=== PATIENT | male | born 1955 | race Two or more races ===

== ENCOUNTER 2016-10-12 07:29 | Day surgery (SDC) | payer OTHER, BC ==
[~2016-10-12 07:29] MED LIST: DIPHENHYDRAMINE HCL 50 MG/ML VIAL ONE; EPINEPHRINE INJ 1 MG/10 ML DISP.SYRIN ONE; FENTANYL CITRATE INJ/PF 100 MCG/2 ML AMPUL ONE; FLUMAZENIL INJ 0.5 MG/5 ML VIAL IV ONE; GLUCAGON,HUMAN RECOMB 1 MG INJ ONE; MIDAZOLAM 2 MG/2 ML INJ ONE; NALOXONE HCL INJ/PF 0.4 MG/1 ML SDV ONE; ONDANSETRON HCL INJ/PF 4 MG/2 ML SDV ONE; PROMETHAZINE HCL INJ 25 MG/1 ML VIAL ONE
[2016-10-12] MEDS: MIDAZOLAM 2 MG/2 ML INJ ONE ×2 (08:07→08:11)
--- NOTE | 2016-10-12 09:03 | Operative Report ---
Operative Report DATE OF SURGERY: 10/12/16 Operative Report: The risks, benefits and alternatives of the procedure including risks of bleeding, perforation requiring surgery are explained to the patient in detail and informed consent is obtained. The patient was taken back to the endoscopy suite. He is placed in the left lateral decubital position. Timeout is called. A rectal examination was done which did not reveal any masses tears or fissures. Conscious sedation medications are provided. An Olympus videoscope was inserted into the patient's rectum. The scope was then carefully advanced all the way to the cecum. The cecum was identified by the usual anatomical landmarks including the ileocecal valve as well as the appendiceal office. Prep is good. Photo documentations obtained. The scope was then sequentially pulled back via the various segments of the colon including the ascending colon , hepatic flexure, transverse colon, splenic flexure, descending colon and finally into the rectosigmoid portions of the colon. Retroflexion maneuver is performed. PREOPERATIVE DIAGNOSIS: Colorectal cancer screening POSTOPERATIVE DIAGNOSIS: Colon polyp at the hepatic flexure that is removed via snare polypectomy. Internal hemorrhoids. Colonoscopy completed to the cecum. OPERATION: Colonoscopy with snare polypectomy SURGEON: SONALI IBARRA ANESTHESIA: Moderate Sedation - 3 mg of Versed, 75 g of fentanyl. Conscious sedation monitoring time 17 minutes. TISSUE REMOVED OR ALTERED: Retrieved. COMPLICATIONS: None. ESTIMATED BLOOD LOSS: none. INTRAOPERATIVE FINDINGS: No masses, AVMs, diverticulosis noted. As described above. PROCEDURE: Patient tolerated the procedure well. No immediate postprocedure complications are noted. Patient is discharged in good condition. Discharge date 10/12/2016. Discharge diet: Regular. Discharge activity: Regular. Surveillance colonoscopy in 3-5 years depending on the pathology of the polyp. Patient does have a 2-3 week follow-up to discuss findings. Patient is instructed to call the office or proceed to the emergency room if there are any further problems or questions. We'll await on biopsies.
[2016-10-12 09:25] VITALS: BP 137/61
== END 2016-10-12 09:25 | disposition home or self-care (01) ==
LOC: END 07:29
PROVIDERS: ATTEND Internal Medicine Gastroenterology
PROC: 0DBE8ZX Excision of Large Intestine, Via Natural or Artificial Opening Endoscopic, Diagnostic (ICD-10-PCS; principal; 2016-10-12 08:00)
DX: Z12.11 Encounter for screening for malignant neoplasm of colon (principal); K64.8 Other hemorrhoids; I10 Essential (primary) hypertension; J43.9 Emphysema, unspecified; K63.5 Polyp of colon
CPT/HCPCS: 45385; 82962; 88305 ×2; J2250; J3010; J0171; J1200; J1610; J2310; J2405; J2550; J3490

== ENCOUNTER → 2017-08-24 | Outpatient (CLI) | payer OTHER ==
--- NOTE | 2017-08-24 10:59 | RADIOLOGY REPORT (SQ) ---
EXAM DESCRIPTION: HIP BILATERAL COMPLETED DATE/TIME: 08/24/2017 10:51 am REASON FOR STUDY: M16.11 UNILATERAL PRIMARY OSTEOARTHRITIS, RIGHT HIP M16.11 UNILATERAL PRIMARY OST EOARTHRITIS, RIGHT HIP COMPARISON: None. NUMBER OF VIEWS: Two views TECHNIQUE: AP pelvis and additional frog-leg view of both hips. LIMITATIONS: None. FINDINGS: MINERALIZATION: Normal. HIPS: No acute fracture or dislocation. No worrisome bone lesions. Marked joint space narrowing with sclerosis and osteophytes in both hips, worse on the right. PELVIS AND SACRUM: No acute fracture or dislocation. No worrisome bone lesions. PUBIS AND ISCHIUM: No acute fracture. LOWER LUMBAR SPINE: No significant findings as visualized. SOFT TISSUES: No findings. OTHER: No other significant finding. IMPRESSION: MARKED DEGENERATIVE CHANGES IN BOTH HIPS, WORSE ON THE RIGHT. NO APPARENT ACUTE FINDING S. TECHNICAL DOCUMENTATION: JOB ID: [id number] [employer]- All Rights Reserved
== END ==
LOC: RAD 10:12
DX: M16.11 Unilateral primary osteoarthritis, right hip (principal)
CPT/HCPCS: 73522

== ENCOUNTER 2018-08-29 22:17 | Emergency (ER) | payer OTHER, BC ==
--- NOTE | 2018-08-29 22:52 | RADIOLOGY REPORT (SQ) ---
XR CHEST 1 VIEW HISTORY: Chest pain. COMPARISON: 02/10/2015 FINDINGS: The cardiomediastinal silhouette is unremarkable. The lungs are clear. No pleural effusion or pneumothorax is identified. IMPRESSION: No acute cardiopulmonary abnormality.
[2018-08-29 23:09] LABS: ABSOLUTE BASOPHILS # (AUTO) 0.1 10^3/uL (0.0-0.2); ABSOLUTE EOSINOPHILS # (AUTO) 0.1 10^3/uL (0.0-0.6); ABSOLUTE LYMPHOCYTES (AUTO) 3.2 10^3/uL (0.5-4.7); ABSOLUTE MONOCYTES (AUTO) 0.6 10^3/uL (0.1-1.4); BASOPHILS % (AUTO) 0.8 % (0-2); EOSINOPHILS % (AUTO) 1.6 % (0-6); HEMOGLOBIN 15.2 g/dL (13.5-17.0); LYMPHOCYTES % (AUTO) 39.7 % (13-45); MEAN CORPUSCULAR HEMOGLOBIN 31.2 pg (27.0-33.4); MEAN CORPUSCULAR HGB CONC 35.4 g/dL (32.0-36.0); MEAN CORPUSCULAR VOLUME 88 fl (80-97); MONOCYTES % (AUTO) 7.9 % (3-13); PLATELET COUNT 266 10^3/uL (150-450); RED BLOOD COUNT 4.87 10^6/uL (4.35-5.55); RED CELL DISTRIBUTION WIDTH 13.7 % (11.5-14.0); TOTAL CELLS COUNTED % (AUTO) 100 %
[2018-08-29 23:15] LABS: INTERNATIONAL RATION (INR) 1.08; PROTHROMBIN TIME 14.6 SEC (11.4-15.4)
[2018-08-29 23:16] LABS: PARTIAL THROMBOPLASTIN TIME 30.8 SEC (23.5-35.8)
[2018-08-29 23:32] LABS: ALANINE AMINOTRANSFERASE 34 U/L (21-72); ALBUMIN 4.5 g/dL (3.5-5.0); ALKALINE PHOSPHATASE 56 U/L (38-126); ANION GAP 13 (5-19); ASPARTATE AMINO TRANSFERASE 22 U/L (17-59); BILIRUBIN,DIRECT 0.2 mg/dL (0.0-0.4); BILIRUBIN,TOTAL 0.4 mg/dL (0.2-1.3); BLOOD UREA NITROGEN 28 mg/dL (7-20); CALCIUM 10.2 mg/dL (8.4-10.2); CARBON DIOXIDE 25 mmol/L (22-30); CHLORIDE 100 mmol/L (98-107); CREATINE KINASE 132 U/L (55-170); GLUCOSE 276 mg/dL (75-110); POTASSIUM 4.1 mmol/L (3.6-5.0); SODIUM 137.9 mmol/L (137-145); TOTAL PROTEIN 7.4 g/dL (6.3-8.2)
[2018-08-30 00:02] LABS: CREATINE KINASE MB 3.58 ng/mL (<4.55)
[2018-08-30 00:18] LABS: TROPONIN I < 0.012 ng/mL
--- NOTE | 2018-08-30 01:17 | ER Document Report ---
ED General - General Chief Complaint: Palpitations Stated Complaint: HEART RACING Time Seen by Provider: 08/30/18 01:16 Notes: Patient is a very pleasant 63-year-old male who presents with complaint of feeling that his heart was racing. Started when he went to Dr. Alonzo's office to have a CPAP check. His heart rate suddenly start racing and his heart rate was in the 150s. He talked to Dr. Alonzo. Dr. Gaspar she denies csr technician. Dr. Patel that he should go to the ER however if he does not want to go to the ER that he can take his medication and rest a little bit but if his heart rate would continue to run fast and is to come to the ER. Patient is on metoprolol. He is also on Eliquis due to history of atrial fibrillation. He said A. fib with RVR in the past. He denies having any chest pain or shortness of breath during his rapid heartbeat. He said the only symptom he had was just some dizziness. He did not pass out. Patient went home and took his medications. His heart was still racing therefore he came to the ER. Just prior to arriving to the ER his heart rate normalized. It is now been normalized for several hours. He is currently completely asymptomatic and has no further concerns. He called his csr technician, Dr. Mayo, who will see him tomorrow at 2:30 PM. TRAVEL OUTSIDE OF THE [place] IN LAST 30 DAYS: No - Related Data Allergies/Adverse Reactions: No Known Allergies Allergy (Verified 10/12/16 07:30) Past Medical History - Social History Smoking Status: Unknown if Ever Smoked Frequency of alcohol use: None Drug Abuse: None Family History: Reviewed & Not Pertinent - Past Medical History Cardiac Medical History: Reports: Hx Atrial Fibrillation - with RVR, Hx Heart Attack - 08/12/12, Hx Hypercholesterolemia, Hx Hypertension Denies: Hx Coronary Artery Disease Pulmonary Medical History: Denies: Hx Asthma, Hx Bronchitis, Hx COPD, Hx Pneumonia, Hx Tuberculosis Neurological Medical History: Denies: Hx Cerebrovascular Accident, Hx Seizures Endocrine Medical History: Reports: Hx Diabetes Mellitus Type 2 Musculoskeletal Medical History: Denies Hx Arthritis Psychiatric Medical History: Denies: Hx Depression Past Surgical History: Reports: Hx Appendectomy, Hx Cardiac Catheterization - 08/12/2012. Denies: Hx Pacemaker - Immunizations Hx Diphtheria, Pertussis, Tetanus Vaccination: Yes Review of Systems - Review of Systems Notes: My Normal Review Basic REVIEW OF SYSTEMS: CONSTITUTIONAL : Denies fever, chills, or sweats. Denies recent illness. CARDIOVASCULAR: Denies chest pain. Rapid heartbeat RESPIRATORY: Denies cough, cold, or chest congestion. Denies shortness of breath, difficulty breathing, or wheezing. GASTROINTESTINAL: Denies abdominal pain. Denies nausea, vomiting, or diarrhea. Denies constipation. Last BM: MUSCULOSKELETAL: Denies neck or back pain or joint pain or swelling. NEUROLOGICAL: Denies altered mental status or loss of consciousness. ALL OTHER SYSTEMS REVIEWED AND NEGATIVE. Physical Exam - Vital signs Vitals: Temp Pulse Resp BP Pulse Ox 98.7 F 85 20 111/63 96 08/29/18 22:33 08/29/18 22:33 08/29/18 22:33 08/29/18 22:33 08/29/18 22:33 - Notes Notes: General Appearance: Well nourished, alert, cooperative, no acute distress, no obvious discomfort. Well-appearing. Vitals: reviewed, See vital signs table. Head: no swelling or tenderness to the head Eyes: PERRL, EOMI, Conjuctiva clear Mouth: No decreasd moisture Lungs: No wheezing, No rales, No rhonci, No accessory muscle use, good air exchange bilaterally. Heart: Normal rate, Regular rythm, No murmur, no rub Abdomen: Normal BS, soft, No rigidity, No abdominal tenderness, No guarding, no rebound, Extremities: good pulses in all extremities, no swelling or tenderness in the extremities, no edema. Skin: warm, dry, appropriate color, no rash Neuro: speech clear, oriented x 3, normal affect, responds appropriately to questions. Course - Re-evaluation Re-evalutation: 08/30/18 01:29 He looks very well and is asymptomatic. Blood work was ordered in triage. His cardiac enzymes are negative. Electrolytes are normal. He has been in normal sinus rhythm since arrival to the ED. I suspect he most likely had A. fib with RVR based on his history and his symptoms. He did not have any associated chest pain. No shortness of breath. He denies any other concerning symptoms associate with his palpitations. He is currently normal sinus rhythm and asymptomatic and therefore feel he safe to be discharged home to follow-up closely with his csr technician tomorrow for reevaluation. Patient encouraged to return to ER if he has recurrence of rapid heartbeat, any chest pain, or if he feels unwell. Patient agrees with plan and will be discharged home. Dictation of this chart was performed using voice recognition software; therefore, there may be some unintended grammatical errors. - Vital Signs Vital signs: Temp Pulse Resp BP Pulse Ox 98.7 F 85 20 111/63 96 08/29/18 22:33 08/29/18 22:33 08/29/18 22:33 08/29/18 22:33 08/29/18 22:33 - Laboratory Result Diagrams: 08/29/18 22:40 08/29/18 22:40 Laboratory results interpreted by me: 08/29/18 22:40 BUN 28 H Glucose 276 H - EKG Interpretation by Me Additional EKG results interpreted by me: 08/30/18 01:16 EKG is reviewed and interpreted by me. EKG shows sinus rhythm with a rate of [address] segment elevation or depression. No ischemic T wave inversions. IA interval, QRS duration, QT intervals are within normal range. Old EKG for comparison is from February 10, 2015. Discharge - Discharge Clinical Impression: Palpitations Condition: Good Disposition: HOME, SELF-CARE Additional Instructions: Please continue to take your medications as prescribed. please follow up with Dr. Mayo tomorrow at 2:30pm as scheduled. Please return to the ER if you have recurrence of rapid heart rate, chest pain, difficulty breathing, or feel unwell.
[2018-08-30 01:30] VITALS: BP 114/68
--- NOTE | 2018-08-30 13:40 | EKG REPORT ---
SEVERITY:- OTHERWISE NORMAL ECG - SINUS RHYTHM BORDERLINE LEFT AXIS DEVIATION : Confirmed by: Yael Scott MD 30-Aug-2018 13:39:04
== END 2018-08-30 01:32 | disposition home or self-care (01) ==
LOC: ER 22:17
DX: R00.2 Palpitations (principal); R42 Dizziness and giddiness; I10 Essential (primary) hypertension; E11.9 Type 2 diabetes mellitus without complications
CPT/HCPCS: 36415; 71045; 80053; 82550; 82553; 84484; 85025; 85610; 85730; 93005; 93010; 99285

== ENCOUNTER 2018-09-16 06:01 | Observation (INO) | payer OTHER, BC ==
[2018-09-16] MEDS ORDERED: METOPROLOL TARTRATE PF/INJ 5 MG/5 ML SDV IV ONE ×3 (06:31→06:32)
[2018-09-16 06:35] LABS: ABSOLUTE EOSINOPHILS # (AUTO) 0.1 10^3/uL (0.0-0.6); ABSOLUTE LYMPHOCYTES (AUTO) 2.9 10^3/uL (0.5-4.7); ABSOLUTE MONOCYTES (AUTO) 0.6 10^3/uL (0.1-1.4); ABSOLUTE NEUT (AUTO) 3.2 10^3/uL (1.7-8.2); BASOPHILS % (AUTO) 0.7 % (0-2); HEMATOCRIT 41.9 % (37.9-51.0); HEMOGLOBIN 14.7 g/dL (13.5-17.0); LYMPHOCYTES % (AUTO) 42.9 % (13-45); MEAN CORPUSCULAR HEMOGLOBIN 31.1 pg (27.0-33.4); MEAN CORPUSCULAR VOLUME 89 fl (80-97); MONOCYTES % (AUTO) 8.2 % (3-13); PLATELET COUNT 209 10^3/uL (150-450); RED BLOOD COUNT 4.72 10^6/uL (4.35-5.55); RED CELL DISTRIBUTION WIDTH 13.5 % (11.5-14.0); SEGMENTED NEUTROPHILS % (AUTO) 46.2 % (42-78); TOTAL CELLS COUNTED % (AUTO) 100 %; WHITE BLOOD COUNT 6.8 10^3/uL (4.0-10.5)
[2018-09-16 06:48] LABS: ALANINE AMINOTRANSFERASE 46 U/L (21-72); ALBUMIN 4.6 g/dL (3.5-5.0); ALKALINE PHOSPHATASE 65 U/L (38-126); ANION GAP 10 (5-19); ASPARTATE AMINO TRANSFERASE 23 U/L (17-59); BILIRUBIN,DIRECT 0.2 mg/dL (0.0-0.4); BILIRUBIN,TOTAL 0.6 mg/dL (0.2-1.3); BLOOD UREA NITROGEN 26 mg/dL (7-20); CALCIUM 9.8 mg/dL (8.4-10.2); CARBON DIOXIDE 24 mmol/L (22-30); CHLORIDE 107 mmol/L (98-107); GLUCOSE 186 mg/dL (75-110); POTASSIUM 4.1 mmol/L (3.6-5.0); SODIUM 141.1 mmol/L (137-145); TOTAL PROTEIN 7.6 g/dL (6.3-8.2)
[2018-09-16] MEDS ORDERED: DILTIAZEM HCL/D5W 125 MG/125 ML RTUINJ IV PRN (07:05)
[2018-09-16] MEDS ORDERED: DILTIAZEM HCL INJ 25 MG/5 ML VIAL IV ONE (07:05)
[2018-09-16] MEDS ORDERED: NORMAL SALINE 500 ML IV ONE ×2 (07:11→08:03)
--- NOTE | 2018-09-16 07:11 | ER Document Report ---
ED Cardiac - General Chief Complaint: Palpitations Stated Complaint: CHEST PALPITATIONS Time Seen by Provider: 09/16/18 06:23 Mode of Arrival: Ambulatory Information source: Patient Notes: 63-year-old male with a history of atrial fibrillation presents emergency department with complaints of palpitations and shortness of breath that started last night. Patient states that he had a similar episode a few weeks ago. He states that his heart rate was in the 150s. He took an additional dose of his metoprolol and his palpitations resolved. Patient states that he followed up with Dr. Mayo, his news clipping cutter and had a stress test done that he says was normal. Patient states that he is currently on metoprolol and Xarelto for his atrial fibrillation. Patient has a history of hypertension, hyperlipidemia, diabetes. Patient denies coronary artery disease or smoking. Patient denies any stents placed. TRAVEL OUTSIDE OF THE [place] IN LAST 30 DAYS: No - HPI Patient complains to provider of: Palpitations, Shortness of breath Was the onset of pain: Sudden Cardiac risk factors: Hypertension Associated symptoms: None Exacerbated by: Denies Relieved by: Nothing Similar symptoms previously: Yes Recently seen / treated by doctor: Yes - Related Data Allergies/Adverse Reactions: No Known Allergies Allergy (Verified 10/12/16 07:30) Past Medical History - General Information source: Patient - Social History Smoking Status: Never Smoker Family History: Reviewed & Not Pertinent Patient has suicidal ideation: No Patient has homicidal ideation: No - Past Medical History Cardiac Medical History: Reports: Hx Atrial Fibrillation - with RVR, Hx Heart Attack - 08/12/12, Hx Hypercholesterolemia, Hx Hypertension Denies: Hx Coronary Artery Disease Pulmonary Medical History: Denies: Hx Asthma, Hx Bronchitis, Hx COPD, Hx Pneumonia, Hx Tuberculosis Neurological Medical History: Denies: Hx Cerebrovascular Accident, Hx Seizures Endocrine Medical History: Reports: Hx Diabetes Mellitus Type 2 Renal/ Medical History: Denies: Hx Peritoneal Dialysis Musculoskeletal Medical History: Denies Hx Arthritis Psychiatric Medical History: Denies: Hx Depression Past Surgical History: Reports: Hx Appendectomy, Hx Cardiac Catheterization - 08/12/2012. Denies: Hx Pacemaker - Immunizations Hx Diphtheria, Pertussis, Tetanus Vaccination: Yes Review of Systems - Review of Systems Constitutional: No symptoms reported EENT: No symptoms reported Cardiovascular: Palpitations Respiratory: No symptoms reported Gastrointestinal: No symptoms reported Genitourinary: No symptoms reported Musculoskeletal: No symptoms reported Skin: No symptoms reported Hematologic/Lymphatic: No symptoms reported Neurological/Psychological: No symptoms reported -: Yes All other systems reviewed and negative Physical Exam - Vital signs Vitals: Temp Pulse Resp BP Pulse Ox 98 F 152 H 23 H 136/90 H 95 09/16/18 06:03 09/16/18 06:03 09/16/18 06:03 09/16/18 06:03 09/16/18 06:03 - Notes Notes: PHYSICAL EXAMINATION: GENERAL: Well-appearing, well-nourished and in no acute distress. HEAD: Atraumatic, normocephalic. EYES: Pupils equal round and reactive to light, extraocular movements intact, sclera anicteric, conjunctiva are normal. ENT: Nares patent, oropharynx clear without exudates. Moist mucous membranes. NECK: Normal range of motion, supple without lymphadenopathy LUNGS: Breath sounds clear to auscultation bilaterally and equal. No wheezes rales or rhonchi. HEART: Irregularly irregular rhythm. ABDOMEN: Soft, nontender, nondistended abdomen. No guarding, no rebound. No masses appreciated. Musculoskeletal: Normal range of motion, no pitting or edema. No cyanosis. NEUROLOGICAL: Cranial nerves grossly intact. Normal speech, normal gait. Normal sensory, motor exams PSYCH: Normal mood, normal affect. SKIN: Warm, Dry, normal turgor, no rashes or lesions noted. Course - Re-evaluation Re-evalutation: 09/16/18 07:11 EKG: Ventricular rate 150, LA interval 64, QRS duration 86, QTc 538, sinus tachycardia. 09/16/18 08:04 Labs and imaging obtained. No acute process identified. Patient given a total of 15 mg of metoprolol. Patient's heart rate continues to be in atrial fibrillation between 120 and 150. I will give the patient a bolus of Cardizem then start the patient on a Cardizem drip. Patient's news clipping cutter is Dr. Mayo who was [facility]. Patient is requesting to be admitted to [facility]. Patient's vital signs are currently stable. 09/16/18 08:17 Patient's heart rate is now in the 60s. A repeat EKG was done. It shows a normal sinus rhythm. Patient is not currently in A. fib with RVR. Patient denies any chest pain or shortness of breath. Patient feels comfortable with discharge home. I told him that he needs to see Dr. Mayo tomorrow. He states that he does not feel he will have a difficult time getting into see Dr. Mayo. I told him he needs to return to the emergency department immediately if he begins having the palpitations again. Patient is agreeable with plan of care. 09/16/18 08:21 EKG: Ventricular rate 66, LA interval 172, castration 88, QTc 428, normal sinus rhythm. Left axis deviation. No ST segment elevation. - Vital Signs Vital signs: Temp Pulse Resp BP Pulse Ox 97.7 F 64 14 124/74 96 09/16/18 08:31 09/16/18 08:31 09/16/18 08:31 09/16/18 08:31 09/16/18 08:31 - Laboratory Result Diagrams: 09/16/18 06:25 09/16/18 06:25 Laboratory results interpreted by me: 09/16/18 06:25 BUN 26 H Glucose 186 H Discharge - Discharge Clinical Impression: Atrial fibrillation with rapid ventricular response Condition: Stable Disposition: HOME, SELF-CARE
[2018-09-16] MEDS ORDERED: DILTIAZEM HCL/D5W 125 MG/125 ML RTUINJ IV ONE (07:48)
--- NOTE | 2018-09-16 07:54 | RADIOLOGY REPORT (SQ) ---
EXAM DESCRIPTION: XR CHEST 1 VIEW COMPLETED DATE/TME: 09/16/2018 06:29 CLINICAL HISTORY: 63 years Male, shortness of breath COMPARISON: 08/29/18 NUMBER OF VIEWS/TECHNIQUE: 1/AP FINDINGS: Adequate lung volume, clear parenchyma, normal cardiac silhouette, and intact bony thorax. IMPRESSION: No acute cardiopulmonary findings.
[2018-09-16 08:31] VITALS: BP 124/74
--- NOTE | 2018-09-16 23:50 | EKG REPORT ---
SEVERITY:- OTHERWISE NORMAL ECG - SINUS RHYTHM BORDERLINE LEFT AXIS DEVIATION : Confirmed by: Grazyna Alonzo 16-Sep-2018 23:49:44
--- NOTE | 2018-09-16 23:51 | EKG REPORT ---
SEVERITY:- ABNORMAL ECG - SINUS TACHYCARDIA VS ATRIAL FLUTTER FINE WITH 2:1 CONDUCTION, REC REPEAT EKG REPOLARIZATION ABNORMALITY, PROB RATE RELATED PROLONGED QT INTERVAL : Confirmed by: Grazyna Alonzo 16-Sep-2018 23:51:19
== END 2018-09-16 09:38 | disposition home or self-care (01) ==
LOC: ER 06:01 → EH 08:12
PROVIDERS: ADMIT Internal Medicine; ATTEND Internal Medicine
DX: I48.91 Unspecified atrial fibrillation (principal); I10 Essential (primary) hypertension; I25.2 Old myocardial infarction; Z79.899 Other long term (current) drug therapy; Z79.02 Long term (current) use of antithrombotics/antiplatelets
CPT/HCPCS: 93005; 96376; 99285; 96374; 96375; 36415; 85025; 80053; 84484; 71045; 93010; J3490 ×3; J7040

== ENCOUNTER 2018-10-23 15:13 | Observation (INO) | payer OTHER, BC ==
[2018-10-23] MEDS ORDERED: DILTIAZEM HCL/D5W 125 MG/125 ML RTUINJ IV PRN ×2 (15:43→18:40)
[2018-10-23] MEDS ORDERED: DILTIAZEM HCL INJ 25 MG/5 ML VIAL IV ONE ×2 (15:44→18:11)
--- NOTE | 2018-10-23 16:09 | RADIOLOGY REPORT (SQ) ---
EXAM DESCRIPTION: CHEST SINGLE VIEW COMPLETED DATE/TIME: 10/23/2018 3:57 pm REASON FOR STUDY: sob COMPARISON: CT chest 02/03/2015 Chest films 08/29/2018, 09/24/2018 EXAM PARAMETERS: NUMBER OF VIEWS: One view. TECHNIQUE: Single frontal radiographic view of the chest acquired. RADIATION DOSE: NA LIMITATIONS: None. FINDINGS: LUNGS AND PLEURA: No opacities, masses or pneumothorax. No pleural effusion. MEDIASTINUM AND HILAR STRUCTURES: No masses. Contour normal. HEART AND VASCULAR STRUCTURES: Heart normal in size. Normal vasculature. BONES: No acute findings. HARDWARE: None in the chest. OTHER: No other significant finding. IMPRESSION: NO ACUTE RADIOGRAPHIC FINDING IN THE CHEST. TECHNICAL DOCUMENTATION: JOB ID: [id number] [employer]- All Rights Reserved Reading location - IP/workstation name: [email or web address]
[2018-10-23 16:19] LABS: ABSOLUTE BASOPHILS # (AUTO) 0.1 10^3/uL (0.0-0.2); ABSOLUTE EOSINOPHILS # (AUTO) 0.2 10^3/uL (0.0-0.6); ABSOLUTE MONOCYTES (AUTO) 0.6 10^3/uL (0.1-1.4); ABSOLUTE NEUT (AUTO) 5.4 10^3/uL (1.7-8.2); BASOPHILS % (AUTO) 0.7 % (0-2); EOSINOPHILS % (AUTO) 2.2 % (0-6); HEMATOCRIT 41.8 % (37.9-51.0); HEMOGLOBIN 14.9 g/dL (13.5-17.0); LYMPHOCYTES % (AUTO) 24.6 % (13-45); MEAN CORPUSCULAR HEMOGLOBIN 31.2 pg (27.0-33.4); MEAN CORPUSCULAR HGB CONC 35.7 g/dL (32.0-36.0); MEAN CORPUSCULAR VOLUME 88 fl (80-97); MONOCYTES % (AUTO) 6.8 % (3-13); PLATELET COUNT 241 10^3/uL (150-450); RED BLOOD COUNT 4.78 10^6/uL (4.35-5.55); RED CELL DISTRIBUTION WIDTH 13.4 % (11.5-14.0); SEGMENTED NEUTROPHILS % (AUTO) 65.7 % (42-78); TOTAL CELLS COUNTED % (AUTO) 100 %; WHITE BLOOD COUNT 8.2 10^3/uL (4.0-10.5)
[2018-10-23 16:26] LABS: PROTHROMBIN TIME 21.8 SEC (11.4-15.4)
[2018-10-23 16:27] LABS: ALANINE AMINOTRANSFERASE 35 U/L (21-72); ALBUMIN 4.7 g/dL (3.5-5.0); ALKALINE PHOSPHATASE 64 U/L (38-126); ANION GAP 13 (5-19); ASPARTATE AMINO TRANSFERASE 24 U/L (17-59); BILIRUBIN,DIRECT 0.3 mg/dL (0.0-0.4); BILIRUBIN,TOTAL 0.7 mg/dL (0.2-1.3); BLOOD UREA NITROGEN 24 mg/dL (7-20); CALCIUM 10.5 mg/dL (8.4-10.2); CARBON DIOXIDE 25 mmol/L (22-30); CHLORIDE 104 mmol/L (98-107); CREATINE KINASE 112 U/L (55-170); GLUCOSE 199 mg/dL (75-110); LIPASE 235.1 U/L (23-300); POTASSIUM 4.4 mmol/L (3.6-5.0); SODIUM 141.8 mmol/L (137-145); TOTAL PROTEIN 7.6 g/dL (6.3-8.2)
[2018-10-23] MEDS ORDERED: MAGNESIUM SULFATE/D5W 1 GM/100 ML RTUPB IV ONE (16:31)
[2018-10-23 16:52] LABS: CREATINE KINASE MB 3.22 ng/mL (<4.55); NT PRO BNP 706 pg/mL (5-900); TROPONIN I < 0.012 ng/mL
[2018-10-23] MEDS ORDERED: METOPROLOL TARTRATE PF/INJ 5 MG/5 ML SDV IV ONE (17:38)
[2018-10-23] MEDS ORDERED: METOPROLOL TARTRATE 25 MG TABLET PO ONE (17:41)
--- NOTE | 2018-10-23 18:12 | ER Document Report ---
ED General - General Chief Complaint: Shortness Of Breath Stated Complaint: SHORTNESS OF BREATH Time Seen by Provider: 10/23/18 15:34 TRAVEL OUTSIDE OF THE [place] IN LAST 30 DAYS: No - HPI Patient complains to provider of: Short of breath palpitations Notes: Patient coming in with a history of atrial fibrillation. Patient states feeling some palpitations went to see his heel layer today Dr. Mayo said that the EKG is physician's office showed a heart rate of 140 therefore was told to come to the ER for further evaluation. Patient denies any changes to his medications or noncompliance with medications. Patient is on hydrochlorothiazide metoprolol Cartia flecainide Jardiance Xarelto atorvastatin glipizide metformin and Trulicity. Patient states he has had episodes of atrial fibrillation in the past has been difficult to control. Patient upon my evaluation is resting company denies overt shortness of breath denies cough fever chest pain abdominal pain - Related Data Allergies/Adverse Reactions: No Known Allergies Allergy (Verified 10/12/16 07:30) Past Medical History - Social History Smoking Status: Never Smoker Frequency of alcohol use: None Drug Abuse: None Family History: Reviewed & Not Pertinent Patient has suicidal ideation: No Patient has homicidal ideation: No - Past Medical History Cardiac Medical History: Reports: Hx Atrial Fibrillation - with RVR, Hx Heart Attack - 08/12/12, Hx Hypercholesterolemia, Hx Hypertension Denies: Hx Coronary Artery Disease Pulmonary Medical History: Denies: Hx Asthma, Hx Bronchitis, Hx COPD, Hx Pneumonia, Hx Tuberculosis Neurological Medical History: Denies: Hx Cerebrovascular Accident, Hx Seizures Endocrine Medical History: Reports: Hx Diabetes Mellitus Type 2 Renal/ Medical History: Denies: Hx Peritoneal Dialysis Musculoskeletal Medical History: Denies Hx Arthritis Psychiatric Medical History: Denies: Hx Depression Past Surgical History: Reports: Hx Appendectomy, Hx Cardiac Catheterization - 08/12/2012. Denies: Hx Pacemaker - Immunizations Hx Diphtheria, Pertussis, Tetanus Vaccination: Yes Review of Systems - Review of Systems Constitutional: No symptoms reported EENT: No symptoms reported Cardiovascular: Palpitations Respiratory: No symptoms reported Gastrointestinal: No symptoms reported Genitourinary: No symptoms reported Male Genitourinary: No symptoms reported Musculoskeletal: No symptoms reported Skin: No symptoms reported Hematologic/Lymphatic: No symptoms reported Neurological/Psychological: No symptoms reported -: Yes All other systems reviewed and negative Physical Exam - Vital signs Vitals: Temp Pulse Resp BP Pulse Ox 98.4 F 141 H 18 134/83 H 97 10/23/18 15:19 10/23/18 15:19 10/23/18 15:19 10/23/18 15:19 10/23/18 15:19 Interpretation: Normal - General General appearance: Appears well, Alert - HEENT Head: Normocephalic, Atraumatic Eyes: Normal Pupils: PERRL - Respiratory Respiratory status: No respiratory distress Chest status: Nontender Breath sounds: Normal Chest palpation: Normal - Cardiovascular Rhythm: Irregularly irregular, Tachycardia Heart sounds: Normal auscultation Murmur: No - Abdominal Inspection: Normal Distension: No distension Bowel sounds: Normal Tenderness: Nontender Organomegaly: No organomegaly - Back Back: Normal, Nontender - Extremities General upper extremity: Normal inspection, Nontender, Normal color, Normal ROM, Normal temperature General lower extremity: Normal inspection, Nontender, Normal color, Normal ROM, Normal temperature, Normal weight bearing. No: Darius's sign - Neurological Neuro grossly intact: Yes Cognition: Normal Orientation: AAOx4 [place] Coma Scale Eye Opening: Spontaneous Stephan Coma Scale Verbal: Oriented [place] Coma Scale Motor: Obeys Commands Stephan Coma Scale Total: 15 Speech: Normal Motor strength normal: LUE, RUE, LLE, RLE Sensory: Normal - Psychological Associated symptoms: Normal affect, Normal mood - Skin Skin Temperature: Warm Skin Moisture: Dry Skin Color: Normal Course - Re-evaluation Re-evalutation: 10/23/18 22:48 EKG showed A. fib with RVR. Patient was given a bolus of Cardizem and became rate controlled patient was monitored for approximately an hour however continue to increase his rate to the he reentered A. fib with RVR again. Patient was given a dose of metoprolol and another bolus of Cardizem discussed the case with the hospital staff. Upon hospitalist entering the room patient again became rate controlled. Hospitalist will admit the patient for further evaluation. - Vital Signs Vital signs: Temp Pulse Resp BP Pulse Ox 98.4 F 141 H 15 101/66 97 10/23/18 15:19 10/23/18 15:19 10/23/18 22:01 10/23/18 22:01 10/23/18 22:01 - Laboratory Result Diagrams: 10/23/18 15:38 10/23/18 15:38 Laboratory results interpreted by me: 10/23/18 10/23/18 15:38 15:38 PT 21.8 H BUN 24 H Glucose 199 H Calcium 10.5 H Magnesium 1.5 L Critical Care Note - Critical Care Note Total time excluding time spent on procedures (mins): 35 Comments: Time spent managing patient with ABozena fib RVR Discharge - Discharge Clinical Impression: Atrial fibrillation with rapid ventricular response Condition: Good Disposition: ADMITTED INPATIENT Admitting Provider: Tadist Tomy Dejesus Unit Admitted: [facility]
[2018-10-23] MEDS ORDERED: GLUCAGON,HUMAN RECOMB 1 MG INJ IM PRN (18:53)
[2018-10-23] MEDS ORDERED: DEXTROSE 40% GEL 15 GM TUBE PO PRN ×2 (18:53)
[2018-10-23] MEDS ORDERED: DEXTROSE 50%-WATER 25 GM/50 ML DISP.SYRIN IV PRN ×2 (18:53)
--- NOTE | 2018-10-23 18:53 | PDOC H&P ---
History of Present Illness Admission Date/PCP: 10/23/18 18:23 GINNY BARGER MD History of Present Illness: VELASQUEZ DANIELS is a 63 year old male with a PMH of paroxysmal AFib on Xarelto and Fleicanide, HTN and DM 2 who was sent to the ER from his garage laborer's office. Patient says he was apparently fine but did wake up with palpitations this morning. He had an appt with his garage laborer, Dr. Mayo today and was found to be in Afib with Hr in the 142 and was sent to the ER. In the ED, EKG showed Aflutter. He went up to the 150s with stable blood pressures. He was given cardizem bolus and converted back to sinus rhythm. He went into the 150s again and was about to be started on cardizem drip but went back spontaneously to sinus rhythm. He denies chest pain or SOB. He is saturat ing well on room air. Past Medical History Cardiac Medical History: Reports: Atrial Fibrillation - with RVR, Myocardial Infarction - 08/12/12, Hyperlipidema, Hypertension Denies: Coronary Artery Disease Pulmonary Medical History: Denies: Asthma, Bronchitis, Chronic Obstructive Pulmonary Disease (COPD), Pneumonia, Tuberculosis Neurological Medical History: Denies: Seizures Endocrine Medical History: Reports: Diabetes Mellitus Type 2 Musculoskeltal Medical History: Denies: Arthritis Psychiatric Medical History: Denies: Depression Hematology: Denies: Anemia Past Surgical History Past Surgical History: Reports: Appendectomy, Cardiac Catheterization - Denies: Pacemaker Social History Smoking Status: Never Smoker Frequency of Alcohol Use: None Hx Recreational Drug Use: No Hx Prescription Drug Abuse: No Family History Family History: Reviewed & Not Pertinent Parental Family History Reviewed: Yes - no premature CAD Children Family History Reviewed: No Sibling(s) Family History Reviewed.: No Medication/Allergy Home Medications: Atorvastatin Calcium [Lipitor 80 mg Tablet] 80 mg PO DAILY 10/23/18 Diltiazem HCl [Cartia Xt] 240 mg PO DAILY 10/23/18 Dulaglutide [Trulicity] 1.5 mg SQ ASDIR PRN 10/23/18 Empagliflozin [Jardiance] 10 mg PO DAILY 10/23/18 Flecainide Acetate [Tambocor 100 Mg Tablet] 50 mg PO BID 10/23/18 Glimepiride [Amaryl 4 mg Tablet] 4 mg PO BID 10/23/18 Hydrochlorothiazide [Hydrodiuril 25 mg Tablet] 25 mg PO DAILY 10/23/18 Metformin HCl [Metformin ER Osmotic] 1,000 mg PO BID 10/23/18 Metoprolol Tartrate [Lopressor 100 mg Tablet] 100 mg PO BID 10/23/18 Rivaroxaban [Xarelto] 20 mg PO DAILY 10/23/18 Allergies/Adverse Reactions: No Known Allergies Allergy (Verified 10/12/16 07:30) Review of Systems All systems: reviewed and no additional remarkable complaints except as stated - as mentioned in HPI Physical Exam Vital Signs: Temp Pulse Resp BP Pulse Ox 98.4 F 141 H 19 122/70 96 10/23/18 15:19 10/23/18 15:19 10/23/18 18:01 10/23/18 18:01 10/23/18 18:01 Intake & Output 10/22/18 10/23/18 10/24/18 06:59 06:59 06:59 Intake Total 100 Balance 100 Weight 211 lb 10.3 oz Results Laboratory Results: 10/23/18 15:38 10/23/18 15:38 10/23/18 10/23/18 15:38 15:38 WBC 8.2 RBC 4.78 Hgb 14.9 Hct 41.8 MCV 88 MCH 31.2 MCHC 35.7 RDW 13.4 Plt Count 241 Seg Neutrophils % 65.7 Lymphocytes % 24.6 Monocytes % 6.8 Eosinophils % 2.2 Basophils % 0.7 Absolute Neutrophils 5.4 Absolute Lymphocytes 2.0 Absolute Monocytes 0.6 Absolute Eosinophils 0.2 Absolute Basophils 0.1 Sodium 141.8 Potassium 4.4 Chloride 104 Carbon Dioxide 25 Anion Gap 13 BUN 24 H Creatinine 0.80 Est GFR ( Amer) > 60 Est GFR (Non-Af Amer) > 60 Glucose 199 H Calcium 10.5 H Magnesium 1.5 L Total Bilirubin 0.7 AST 24 ALT 35 Alkaline Phosphatase 64 Total Protein 7.6 Albumin 4.7 Lipase 235.1 10/23/18 10/23/18 15:38 15:38 Creatine Kinase 112 CK-MB (CK-2) 3.22 Troponin I < 0.012 NT-Pro-B Natriuret Pep 706 Impressions: Chest X-Ray 10/23/18 15:41 IMPRESSION: NO ACUTE RADIOGRAPHIC FINDING IN THE CHEST. Assessment & Plan - Diagnosis (1) Atrial fibrillation with rapid ventricular response Is this a current diagnosis for this admission?: Yes Plan: Currently in sinus rhythm. He has been going in and out of Afib. Discussed with cardiology. Will keep him on cardizem drip at 2.5 for tonight with parameters. Will restart Xarelto. Will also check TSH. (2) DM w/o complication type II Is this a current diagnosis for this admission?: Yes Plan: He is on metofmrin, glimeperide and Trulicity at home. Start sliding scale for now. (3) Hypomagnesemia Is this a current diagnosis for this admission?: Yes Plan: Mg is low at 1.5. He is getting IV Mg replacement. Will recheck Mg in the morning. - Time Time Spent: 30 to 50 Minutes
[2018-10-23] MEDS: INSULIN LISPRO 100 UNIT/ML 3 ML VIAL SUBCUT SCH (22:20)
[2018-10-24] MEDS: INSULIN LISPRO 100 UNIT/ML 3 ML VIAL SUBCUT SCH ×2 (07:51→11:36)
[2018-10-24] MEDS ORDERED: RIVAROXABAN 10 MG TABLET PO SCH (10:00)
[2018-10-24] MEDS ORDERED: ATORVASTATIN CALCIUM 80 MG TABLET PO SCH (10:00)
[2018-10-24] MEDS ORDERED: FLECAINIDE ACETATE 100 MG TABLET PO SCH ×2 (10:00→22:00)
--- NOTE | 2018-10-24 10:20 | EKG REPORT ---
SEVERITY:- ABNORMAL ECG - A-FLUTTER W/ PREDOM 4:1 AV BLOCK, A-RATE 254 BORDERLINE LEFT AXIS DEVIATION : Confirmed by: Grazyna Alonzo 24-Oct-2018 10:19:21
--- NOTE | 2018-10-24 10:20 | EKG REPORT ---
SEVERITY:- OTHERWISE NORMAL ECG - SINUS RHYTHM BORDERLINE LEFT AXIS DEVIATION : Confirmed by: Grazyna Alonzo 24-Oct-2018 10:18:41
--- NOTE | 2018-10-24 10:22 | EKG REPORT ---
SEVERITY:- ABNORMAL ECG - PROB SINUS TACHYCADIA VS JUNCTIONAL TACHYCARDIA VS AF WITH 2:1 CONDUCTION REC REPEAT EKG BORDERLINE LEFT AXIS DEVIATION MINIMAL ST DEPRESSION, INFERIOR LEADS PROLONGED QT INTERVAL : Confirmed by: Grazyna Alonzo 24-Oct-2018 10:21:14
[2018-10-24] MEDS ORDERED: FLECAINIDE ACETATE 100 MG TABLET PO ONE (11:30)
[2018-10-24 12:19] VITALS: BP 101/83
--- NOTE | 2018-10-24 16:02 | PDOC DISCHARGE SUMMARY ---
General - Admit/Disc Date/PCP Admission Date/Primary Care Provider: 10/23/18 18:23 GINNY BARGER MD Discharge Date: 10/24/18 - Discharge Diagnosis (1) Atrial fibrillation with rapid ventricular response Is this a current diagnosis for this admission?: Yes Summary: He initially got a dose of IV Cardizem in the ER and converted to a sinus rhythm, but he could not maintain it, so we started him on a low-dose Cardizem drip. He converted on that. Spoke with his button attaching machine operator Dr. Mayo who recommended increasing his flecainide to 100 mg twice a day and to have the patient follow-up in Dr. Mayo' office first thing tomorrow morning. - Additional Information Resuscitation Status: Full Code Discharge Diet: Cardiac, Diabetic Discharge Activity: Activity As Tolerated Prescriptions: Flecainide Acetate [Tambocor 100 mg Tablet] 100 mg PO Q12 #60 tablet Home Medications: Atorvastatin Calcium [Lipitor 40 mg Tablet] 40 mg PO QHS 10/23/18 Diltiazem HCl [Cartia Xt] 240 mg PO DAILY 10/23/18 Dulaglutide [Trulicity] 1.5 mg SQ Q7D PRN 10/23/18 Empagliflozin [Jardiance] 10 mg PO DAILY 10/23/18 Glimepiride [Amaryl 4 mg Tablet] 4 mg PO BID 10/23/18 Hydrochlorothiazide [Hydrodiuril 25 mg Tablet] 12.5 mg PO DAILY 10/23/18 Lisinopril [Zestril] 40 mg PO DAILY 10/23/18 Metformin HCl [Metformin ER Osmotic] 1,000 mg PO BID 10/23/18 Metoprolol Tartrate [Lopressor 100 mg Tablet] 100 mg PO BID 10/23/18 Rivaroxaban [Xarelto] 20 mg PO DAILY 10/23/18 Tramadol HCl/Acetaminophen [Ultracet 37.5 mg/325 mg Tablet] 1 each PO TIDP PRN 10/23/18 Flecainide Acetate [Tambocor 100 mg Tablet] 100 mg PO Q12 #60 tablet 10/24/18 History of Present Illness History of Present Illness: VELASQUEZ DANIELS is a 63 year old male with a PMH of paroxysmal AFib on Xarelto and Fleicanide, HTN and DM 2 who was sent to the ER from his button attaching machine operator's office. Patient says he was apparently fine but did wake up with palpitations this morning. He had an appt with his button attaching machine operator, Dr. Mayo today and was found to be in Afib with Hr in the 142 and was sent to the ER. In the ED, EKG showed Aflutter. He went up to the 150s with stable blood pressures. He was given cardizem bolus and converted back to sinus rhythm. He went into the 150s again and was about to be started on cardizem drip but went back spontaneously to sinus rhythm. He denies chest pain or SOB. He is saturating well on room air. Hospital Course Hospital Course: He initially got a dose of IV Cardizem in the ER and converted to a sinus rhythm, but he could not maintain it, so we started him on a low-dose Cardizem drip. He converted on that. Spoke with his button attaching machine operator Dr. Mayo who recommended increasing his flecainide to 100 mg twice a day and to have the patient follow-up in Dr. Mayo' office first thing tomorrow morning. Physical Exam Vital Signs: Temp Pulse Resp BP Pulse Ox 97.9 F 69 18 101/83 100 10/24/18 12:18 10/24/18 12:18 10/24/18 12:18 10/24/18 12:18 10/24/18 12:18 Intake & Output 10/23/18 10/24/18 10/25/18 06:59 06:59 06:59 Intake Total 113 Balance 113 Weight 92.6 kg General appearance: PRESENT: no acute distress, cooperative, disheveled, obese Respiratory exam: PRESENT: clear to auscultation gabriel, symmetrical, unlabored. ABSENT: accessory muscle use, chest wall tenderness, crackles, prolonged expira tory phas, rhonchi, tachypnea, wheezes Cardiovascular exam: PRESENT: RRR, +S1, +S2 Pulses: PRESENT: normal carotid pulses Vascular exam: PRESENT: normal capillary refill GI/Abdominal exam: PRESENT: normal bowel sounds, soft. ABSENT: distended, guarding, tenderness Extremities exam: ABSENT: clubbing, pedal edema Musculoskeletal exam: PRESENT: normal inspection. ABSENT: deformity Neurological exam: PRESENT: alert, awake, oriented to person, oriented to place, oriented to situation Psychiatric exam: PRESENT: appropriate affect, normal mood Skin exam: PRESENT: dry, warm Results Laboratory Results: 10/23/18 15:38 10/23/18 15:38 10/23/18 10/23/18 10/23/18 15:38 15:38 15:38 WBC 8.2 RBC 4.78 Hgb 14.9 Hct 41.8 MCV 88 MCH 31.2 MCHC 35.7 RDW 13.4 Plt Count 241 Seg Neutrophils % 65.7 Lymphocytes % 24.6 Monocytes % 6.8 Eosinophils % 2.2 Basophils % 0.7 Absolute Neutrophils 5.4 Absolute Lymphocytes 2.0 Absolute Monocytes 0.6 Absolute Eosinophils 0.2 Absolute Basophils 0.1 Sodium 141.8 Potassium 4.4 Chloride 104 Carbon Dioxide 25 Anion Gap 13 BUN 24 H Creatinine 0.80 Est GFR ( Amer) > 60 Est GFR (Non-Af Amer) > 60 Glucose 199 H Calcium 10.5 H Magnesium 1.5 L Total Bilirubin 0.7 AST 24 ALT 35 Alkaline Phosphatase 64 Total Protein 7.6 Albumin 4.7 Lipase 235.1 TSH 1.03 10/23/18 10/23/18 10/23/18 15:38 15:38 18:44 Creatine Kinase 112 CK-MB (CK-2) 3.22 Troponin I < 0.012 < 0.012 NT-Pro-B Natriuret Pep 706 Impressions: Chest X-Ray 10/23/18 15:41 IMPRESSION: NO ACUTE RADIOGRAPHIC FINDING IN THE CHEST. Qualifiers - * PATIENT BEING DISCHARGED WITH ANY OF THE FOLLOWING DIAGNOSIS: No
== END 2018-10-24 12:50 | disposition home or self-care (01) ==
LOC: ER 15:13 → EH 18:23 → INTOOBSV 18:23 → 3N 23:34
PROVIDERS: ADMIT Internal Medicine; ATTEND Internal Medicine
DX: I48.0 Paroxysmal atrial fibrillation (principal); I10 Essential (primary) hypertension; E11.9 Type 2 diabetes mellitus without complications; E83.42 Hypomagnesemia; E78.5 Hyperlipidemia, unspecified; I25.2 Old myocardial infarction; Z79.01 Long term (current) use of anticoagulants; Z79.899 Other long term (current) drug therapy; Z79.84 Long term (current) use of oral hypoglycemic drugs; Z90.49 Acquired absence of other specified parts of digestive tract
CPT/HCPCS: 93005 ×2; 99291; 96375; 96365; 36415; 82553; 82962 ×2; 82550; 83690; 83735; 84443; 85025; 85610; 80053; 84484; 83880; 71045; 93010; G0378 ×3; J3490 ×5; J3475